=== PATIENT | male | born 1950 | race Caucasian/White ===

== ENCOUNTER 2019-10-15 13:28 | Outpatient (CLI) | payer MEDICARE ==
--- NOTE | 2019-10-15 14:18 | RAD ---
EXAM: 3 views of the right shoulder HISTORY: Shoulder pain COMPARISON: None FINDINGS: There is no evidence of acute fracture or dislocation. Moderate to severe glenohumeral dege nerative changes are present. No soft tissue swelling is seen. The visualized thorax is unremarkable. 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
== END 2019-10-15 13:29 | disposition home or self-care (01) ==
LOC: MADRAD 13:28
PROVIDERS: ATTEND Registered Nurse
DX: M25.511 Pain in right shoulder (principal); M19.011 Primary osteoarthritis, right shoulder

== ENCOUNTER 2023-08-28 11:14 | Outpatient (CLI) | payer MEDICARE | END 2023-08-28 11:15 | disposition home or self-care (01) | LOC: MADCT 11:14 | PROVIDERS: ATTEND Registered Nurse | DX: R42 Dizziness and giddiness (principal) | CPT/HCPCS: 70450 ==